=== PATIENT | female | born 1950 | race Caucasian/White ===

== ENCOUNTER 2016-11-17 00:53 | Inpatient (IN) ==
[2016-11-17 01:54] LABS: MANUAL DIFF NEEDED? NO
[2016-11-17 02:15] LABS: AGAP 15; ALBUMIN 4.3 g/dL (3.5-5.0); ALKALINE PHOSPHATASE 146 U/L (32-104); AMYLASE 46 U/L (20-200); BUN 15 mg/dL (8-22); CALCIUM 9.7 mg/dL (8.8-10.2); CHLORIDE 100 mmol/L (98-107); COSMO 288; GOT 57 U/L (10-30); GPT 32 U/L (10-36); LIPASE 29 U/L (13-60); SODIUM 143 mmol/L (136-145); TCO2 28 mmol/L (25-35); TOTAL BILIRUBIN 0.56 mg/dL (0.20-1.00); TOTAL PROTEIN 7.8 g/dL (6.3-8.3)
[2016-11-17 02:17] LABS: URINE CULTURE NEEDED? NO; URINE MICRO REVIEW NEEDED? NO; URINE SOURCE CATH
[2016-11-17 02:20] LABS: BILIRUBIN URINE NEGATIVE (NEGATIVE); BLOOD URINE NEGATIVE (NEGATIVE); COLOR YELLOW; GLUCOSE URINE NEGATIVE (NEGATIVE); LEUKOCYTES URINE NEGATIVE (NEGATIVE); NITRITE URINE NEGATIVE (NEGATIVE); PH URINE 7.5; PROTEIN URINE TRACE mg/dL (NEGATIVE); SP GRAVITY URINE 1.017; TURBIDITY URINE HAZY (CLEAR); UROBILINOGEN URINE 2 mg/dL (NORMAL)
[2016-11-17 02:20] LABS: BASO% 0.1 % (0.0-0.8); EOS# 0.02 X1000 (0.0-0.7); EOS% 0.1 % (0.0-10.0); HEMATOCRIT 37.8 % (37.0-47.0); HEMOGLOBIN 12.6 g/dL (12.0-16.0); IMM GRAN# 0.02 X1000 (0.0-0.04); IMM GRAN% 0.1 % (0.0-0.5); LYMPH# 1.64 X1000 (1.2-3.4); LYMPH% 11.5 % (20.5-51.1); MCH 30.3 PG (27-31); MCHC 33.3 g/dL (33-37); MCV 90.9 FL (81-99); MONO# 0.74 X1000 (0.11-0.59); MONO% 5.2 % (1.7-9.3); MPV 10.7 FL (7.4-10.4); PLT 246 X1000 (130-400); RBC 4.16 XMIL (4.2-5.4)
[2016-11-17 02:21] LABS: UR EPITHELIAL CELLS <10 /HPF (<10); URINE BACTERIA NEGATIVE /HPF; URINE RBC <10 /HPF (<10); URINE WBC <10 /HPF (<10)
--- NOTE | 2016-11-17 06:29 | PROVIDER DOCUMENTATION ---
This chart was entered by Curt Read Scribe, acting as scribe for Reece Ashby MD. HPI-Abdominal Pain/GI Problem - General Chief Complaint: Abdominal Pain Stated Complaint: abd pain Time Seen by Provider: 11/17/16 05:20 Source: patient, family Allergies/Adverse Reactions: Patient Allergies Allergy/AdvReac Type Severity Reaction Status Date / Time Sulfa (Sulfonamide Allergy Severe HIVES Verified 11/17/16 02:42 Antibiotics) Home Medications: Home Medication List Medication Instructions Recorded Confirmed Last Taken Type NK [No Home Medications] 11/17/16 11/17/16 Unknown History - History of Present Illness-ABD Nature of Presenting Problems: Pt is a 66 yowf who presents to ER with CC of midepigastric pain that is worse when pt urinates. Pt reports onset was 0130 this am and is non-radiating and burning sensation. Daughter states that over the past year, pt has lost 40 pounds, has been diagnosed with early onset dementia (with family hx where both parents in early 60's from early onset dementia). Daughter also reports that pt has had a decrease in appetite. Daughter reports that pt was seen in the last 6-7 months for same sxs and was told it was acid reflux, but never followed up with GI. Pt states that when her pain is present, she has mild relief with antacids. Abdominal Pain Onset Location: reports: epigastric Pain Radiation: reports: no radiation Quality of Pain: reports: burning Severity in ED: reports: mild Onset/Duration: reports: 4-6 hours ago Timing: reports: intermittent Associated Symptoms: reports: heartburn, loss of appetite. denies: anxiety, arm pain, back/neck pain, chest pain, constipation, diarrhea, fever/chills, headaches, joint pain, muscle aches, nausea, shortness of breath, syncope, vomiting, weakness, trouble walking Last BM: this morning Dark Stools Present?: reports: none noticed Rectal Bleeding: reports: none Rectal Pain: reports: none Emesis Description: reports: none Review of Systems - Adult - REVIEW OF SYSTEMS - ADULT Constitutional: reports: weight loss (40 pounds in past year). denies: chills, fever, fatique, night sweats, weight gain Eyes: reports: no symptoms reported Ears, Nose, Mouth & Throat: reports: no symptoms reported Cardiovascular: reports: no symptoms reported Respiratory: reports: no symptoms reported Gastrointestinal: reports: abdominal pain, frequent heartburn, poor appetite. denies: hematemesis, constipation, diarrhea, difficulty swallowing, nausea, rectal bleeding, vomiting Genitourinary: reports: no symptoms reported Musculoskeletal: reports: no symptoms reported Integumentary: reports: no symptoms reported Neurological: reports: no symptoms reported Psychiatric: reports: no symptoms reported Endocrine: reports: no symptoms reported Hematologic/Lymphatic: reports: no symptoms reported Allergic/Immunologic: reports: no symptoms reported All Other Systems: Reviewed and Negative Past History - Adult - PAST MEDICAL HISTORY-ADULT Review of Records: reports: Nursing Assessment Review, Medications Reviewed Neurological: reports: dementia - IMMUNIZATION STATUS Childhood Immunizations: See Nurse Assessment Flu Vaccine: See Nurse Assessment Physical Exam-General - PHYSICAL EXAM-ADULT Initial Vital Signs Reviewed: Yes - CONSTITUTIONAL General Appearance: appears well, alert, no apparent distress, thin - EYES Eyes: PERRL/EOMI, pink conjunctivae - NECK Neck: non-tender, full range of motion, supple, normal inspection. negative: limited range of motion, lymphadenopathy - RESPIRATORY Respiratory: chest non-tender, lungs clear, normal breath sounds, no pleuratic chest pain, no respiratory distress, no accessory muscle use. negative: respiratory distress, decreased breath sounds, accessory muscle use, wheezing - CARDIOVASCULAR Cardiovascular: normal peripheral pulses, regular rate, rhythm. negative: bradycardia, tachycardia, irregularly irregular - GASTROINTESTINAL (ABDOMEN) Abdominal Exam: normal bowel sounds, non tender, soft, no organomegaly, no pulsatile mass. negative: guarding, rebound, tenderness - MUSCULOSKELETAL Extremity: normal range of motion, non-tender, normal gait, normal inspection, no pedal edema, no calf tenderness, normal capillary refill, pelvis stable. negative: deformity, erythema, inflammation, swelling, tenderness - SKIN Integumentary: normal color, normal turgor, warm/dry. negative: abrasion(s), diaphoresis, ecchymosis, erythema, laceration(s), swelling, tenderness, warm - PSYCHIATRIC Psych/Mental Status: normal mood/affect, normal thought content, normal thought process, oriented x 3 Progress - PLAN OF CARE/RESULTS Progress/Plan/Lab Results: Vital Signs - 8 hr 11/17/16 01:08 11/17/16 02:41 11/17/16 04:57 Temperature 97.9 F Pulse Rate 60 68 66 Respiratory Rate 18 Blood Pressure 128/59 141/63 151/69 O2 Sat by Pulse Oximetry 100 99 97 Laboratory Results - last 24 hr 11/17/16 11/17/16 11/17/16 01:02 01:02 02:00 WBC 14.24 H RBC 4.16 L Hgb 12.6 Hct 37.8 MCV 90.9 MCH 30.3 MCHC 33.3 RDW Std Deviation 13.7 Plt Count 246 MPV 10.7 H Immature Gran % (Auto) 0.1 Neut % (Auto) 83.0 H Lymph % (Auto) 11.5 L [place] % (Auto) 5.2 Eos % (Auto) 0.1 Baso % (Auto) 0.1 Immature Gran # (Auto) 0.02 Neut # (Auto) 11.80 H Lymph # (Auto) 1.64 [place] # (Auto) 0.74 H Eos # (Auto) 0.02 Baso # (Auto) 0.02 Sodium 143 Potassium 4.0 Chloride 100 Carbon Dioxide 28 Anion Gap 15 BUN 15 Creatinine 0.6 Estimated GFR/1.73 m2 > 60 BUN/Creatinine Ratio 25 Glucose 136 H Calculated Osmolality 288 Calcium 9.7 Total Bilirubin 0.56 AST 57 H ALT 32 Alkaline Phosphatase 146 H Total Protein 7.8 Albumin 4.3 Globulin 3.5 Albumin/Globulin Ratio 1.2 Amylase 46 Lipase 29 Urine Source CATH Urine Color YELLOW Urine Turbidity HAZY Urine pH 7.5 Ur Specific Dickson 1.017 Urine Protein TRACE A Ur Glucose (Stick) NEGATIVE Ur Ketones (Stick) NEGATIVE Urine Blood NEGATIVE Urine Nitrite NEGATIVE Urine Bilirubin NEGATIVE Urobilinogen Dipstick 2 A Urine Leukocytes NEGATIVE Urine WBC (Auto) <10 Urine RBC (Auto) <10 U Epithel Cells (Auto) <10 Urine Bacteria (Auto) NEGATIVE Orders Category Date Time Status Saline Loc DIRECTED Care 11/17/16 01:14 Active NPO Diet 11/17/16 01:14 Active AMYLASE [CHEM] Stat Lab 11/17/16 01:02 Completed CBC WITH ELECTRONIC DIFF [HEME] Stat Lab 11/17/16 01:02 Completed COMPREHENSIVE METABOLIC PANEL [CHEM] Stat Lab 11/17/16 01:02 Completed LIPASE [CHEM] Stat Lab 11/17/16 01:02 Completed URINALYSIS W/POSS RFLX CULT-1 [URINALYSIS] Stat Lab 11/17/16 02:00 Completed Result Diagrams: 11/17/16 01:02 11/17/16 01:02 - CONSULTS/PCP/HOSPITALIST Notification #1 *Consult/PCP/Hospitalist*: Dr Montilla Time Discussed: 07:38 Consult Disposition: Admit - CHANGE OF SHIFT REPORT (ED Provider) Report Given and Care Transferred to:: Dr Elizabeth Time of Transfer: 06:12 Items Pending: CT/MRI Results (She appears to have PUD or maybe GERD but has lost 40 pounds over the past few months. We are awaiting T/A/P CT results but ultimately will need EGD as out pt. Early onset dementia is also a problem.) Departure - Departure Date of Disposition Decision: 11/17/16 Time of Disposition Decision: 07:39 DIAGNOSIS: Common bile duct (CBD) stricture Disposition: ADMITTED INPATIENT 09 Certified Medical Emergency: Emergent Condition: Fair Referrals and Follow-Ups: None,PCP [Primary Care Provider] - Tam Odell III, MD [ACTIVE STAFF PHYSICIAN] - Jordan Torres MD [ACTIVE STAFF PHYSICIAN] - - Critical Care Note This patient required my direct & personal management of CC.: No Attestation - Physician/ TIA Attestation Patient care was provided by Advanced Practice Provider:: No The physician spent face to face time with patient:: Yes Advanced Practice Provider documentation review:: Supervising physician onsite and consulted in the evaluation and care of this patient. The physician did have a face to face encounter with the patient. This chart was documented by the indicated scribe, (Curt Read Scribe) and accurately reflects the services I performed and decisions made by me, Reece Ashby MD, as attested by the provider's signature.
[2016-11-17] MEDS ORDERED: PRILOSEC PO SCH (11:45)
[2016-11-17] MEDS ORDERED: ZOFRAN IV PRN (11:45)
[2016-11-17] MEDS: NS 1,000 ML IV SCH (12:05)
[2016-11-17] MEDS: TYLENOL PO PRN (12:05)
--- NOTE | 2016-11-17 12:38 | Diag Imaging Result Doc PS360 ---
EXAM: CT THORAX/ABDOMEN/PELVIS INDICATION: malig work up TECHNIQUE: Standard images through the chest abdomen and pelvis were obtained after administration of IV contrast. COMPARISON: None. FINDINGS: CHEST: There is patchy bronchiectasis bilaterally with mild mucous plugging, most prominent anteriorly. There are mild patchy and vaguely nodular tree-in-bud opacities scattered throughout both lungs. This probably represents an atypical infectious process. Consider JOANNE infection. There is scarring at the lung apices, more prominent on the right where it extends inferiorly to the major fissure. The heart is not enlarged. There is no significant mediastinal or hilar lymphadenopathy appreciated. There are no pleural fluid collections and no pneumothorax. ABDOMEN/PELVIS: There are a couple tiny calcified stones layering in the gallbladder lumen. The gallbladder is distended and there is intrahepatic and extrahepatic biliary dilatation. No calcified stone is identified in the common bile duct. An occult radiolucent stone in the common bile duct or other obstructing lesion should be considered. There is no well-defined pancreatic mass. The pancreas is grossly unremarkable, otherwise. Aside from the biliary dilatation, the liver is unremarkable. The spleen and adrenal glands appear normal. There appears to be focal cortical scarring at the upper pole of the right kidney versus persistent lobulation. There is no hydronephrosis. The urinary bladder is unremarkable. The reproductive tract is grossly unremarkable as imaged. There is no evidence of appendicitis. The GI tract is grossly unremarkable. No focal inflammatory changes, free abdominal gas, or free fluid is appreciated. IMPRESSION: 1.Patchy bronchiectasis and mild tree-in-bud opacities throughout the lungs as described. Consider an atypical infectious process such as JOANNE. 2.Cholelithiasis. 3.Distended gallbladder and dilated intrahepatic and extrahepatic bile ducts. No radiopaque stone or ampullary mass can be identified on this study. Consider an occult obstructing radiolucent stone. Ultrasound and ERCP would probably be helpful. 4.Other incidental/nonacute findings detailed above. Electronically signed by Romaine Brice 11/17/2016 12:35 PM
--- NOTE | 2016-11-17 12:51 | Diag Imaging Result Doc PS360 ---
EXAM: US ABDOMEN-COMPLETE INDICATION: abd pain; cbd dilatation COMPARISON: None. FINDINGS: There are multiple small shadowing stones in the gallbladder lumen. The gallbladder is distended. There is no evidence of significant gallbladder wall thickening or pericholecystic fluid. The common bile duct is dilated measuring up to 1 cm in diameter. No intraductal stones can be identified sonographically. Sonographic Hurtado's sign was reported to be positive. The liver is grossly unremarkable. Portal venous flow is hepatopedal. The visualized pancreas is unremarkable. The aorta and IVC are grossly unremarkable. The spleen is unremarkable. There are a couple tiny simple appearing renal cysts bilaterally measuring up to 1.3 cm in the greatest dimensions. The kidneys are grossly unremarkable, otherwise. IMPRESSION: 1.Cholelithiasis. 2.Distended bile ducts and gallbladder but no ductal stone can be identified sonographically. 3.Reported positive sonographic Hurtado sign. Electronically signed by Romaine Brice 11/17/2016 12:49 PM
[2016-11-17] MEDS: ZOSYN 3.375 GM in NS 50 ML IV SCH ×2 (15:44→20:47)
--- NOTE | 2016-11-17 16:16 | HISTORY AND PHYSICAL ---
PRIMARY CARE PROVIDER: I am unable to obtain as patient is confused and there are no previous records. CHIEF COMPLAINT: Daughter brought her in for abdominal pain and a 40-pound weight loss with decreased appetite. HISTORY OF PRESENT ILLNESS: Ms. Silvia Goldsmith is a 66-year-old female with early onset dementia who also has a history of GERD, but when questioning her, she is definitely confused or has dementia. She told me that she did not have any pain in her stomach, but palpating, she did have some epigastric to right upper quadrant tenderness. The chest, abdominal and pelvic CT according to the ER physician showed a day common bile duct stricture of 9 mm. She also has an abdominal ultrasound that is pending. She does have elevated white count of 14, but afebrile. She has some a mild elevation of her AST and her alkaline phosphatase. Urinalysis is negative. Still awaiting chest CT results. I will admit, consult GI for possible ERCP. Of note, the daughter was not at the bedside when speaking to the patient, but according to ER records that she has had a 40 pound weight loss over the last year with a decreased appetite and that she has been having some reflux with some mild relief after antacids. PAST MEDICAL HISTORY: Early onset dementia and GERD. SURGICAL HISTORY: She has had some sort of abdominal surgery, but is unable to tell me what kind. There is an old midline abdominal incision. SOCIAL HISTORY: She states that she quit smoking, but used to smoke about a 4th pack per day. It is unknown when she quit. She says 7-8 years ago, but she is a poor historian. She denied alcohol and states that she lives with her daughter. FAMILY HISTORY: According to the daughter, the patient's mother and father both had early onset dementia and in their 60's. REVIEW OF SYSTEMS: Difficult to obtain. ALLERGIES: Sulfa. HOME MEDICATIONS: There are no home medications listed. PHYSICAL EXAMINATION: VITAL SIGNS: Temperature is 97.8 degrees, heart rate 74, respiratory rate 20, blood pressure 139/65, O2 saturation 97% on room air. She is 5 feet 4 inches tall, 132 pounds. BMI 22.8. GENERAL: Ms. Silvia Goldsmith is a 66-year-old, female, but most definitely has some sort of dementia. She is a pleasant, but confused. HEENT: Atraumatic, normocephalic. Pupils equal, round, reactive to light. Extraocular movements intact. Mucous membranes are moist. NECK: No JVD or carotid bruits noted. CARDIOVASCULAR: S1, S2. Regular rate and rhythm. No rubs, gallops, murmurs. PULMONARY: Clear to auscultation. Bilateral breath sounds. No accessory muscle use or work of breathing noted. GI: Soft, tender in the epigastric to right upper quadrant upon palpation. Positive bowel sounds x4. States she last had a bowel movement yesterday. EXTREMITIES: No edema noted. +2 dorsalis and radial pulses. NEUROLOGIC: Oriented to name only. Pleasantly confused and follows commands. SKIN: Warm, dry, intact. LABORATORY DATA: White blood cells 14,000, hemoglobin 12, hematocrit 37, platelet count 246,000. Sodium 143, potassium 4, BUN 15, creatinine 0.6, glucose 136, calcium 9.7, bilirubin 0.56, AST 57. ALT 37. Alkaline phos 146. Albumin 4.3. Urinalysis, trace protein, urobilin 2. IMAGING: Chest, abdomen, pelvic CT is not fully resulted, but according to the ER physician, it was reported that she had a common bile duct stricture at 9 mm, abdominal ultrasound has also not been read. ASSESSMENT AND PLAN: 1. Abdominal pain with 40 pound weight loss, decreased appetite and a reported common bile duct stricture of 9 mm. We will consult Gastroenterology for possible ERCP and continue with the proton pump inhibitor. 2. Gastroesophageal reflux disease. We will continue proton pump inhibitor. 3. Early onset dementia. No orders for this. We will just monitor for now. 4. Leukocytosis. She is afebrile. We are waiting for chest CT results. Urinalysis is good. Blood cultures have been obtained. 5. Hyperglycemia, but no history of diabetes. 6. Deep venous thrombosis prophylaxis. SCDs. Dictated by VITALY Scott for Juan Diego Ward MD cc: VITALY Scott MD
[2016-11-17] MEDS: PROTONIX IV SCH (17:02)
[2016-11-17] MEDS: SODIUM CHLORIDE 0.9% INJ SCH (17:02)
[2016-11-17] MEDS ORDERED: XANAX PO ONE (17:15)
--- NOTE | 2016-11-17 18:43 | CONSULTATION ---
DATE OF CONSULTATION: 11/17/2016 REQUESTING PHYSICIAN: Dr. Torres. REASON FOR CONSULT: Possible biliary stricture with choledocholithiasis. HISTORY OF PRESENT ILLNESS: The patient is a 66-year-old female with some underlying early dementia, presenting with epigastric pain that she describes worse when she urinated. Upon further description with her, her pain essentially moved around all over the place. Initially saying it was epigastric, then left upper quadrant, and then right lower quadrant pain. Regardless, she told the emergency department epigastric. Described as burning. There was some concern that this might be peptic ulcer disease. She also has a reported weight loss and loss of appetite. Apparently at 1 point there was family at the bedside in the emergency department that give further history of this but there is none at the bedside now. Daughter did report a decrease in appetite and initially they were told that this epigastric pain was related to reflux but when I asked the patient this time if she has had similar episodes in the past, she denied them. Again, it might be difficult to get a full history given the patient's mental status and early onset dementia. PAST MEDICAL HISTORY: Early onset dementia. PAST SURGICAL HISTORY: Includes appendectomy. MEDICATIONS: None. ALLERGIES: Sulfa. FAMILY HISTORY: Reviewed with patient and positive for early dementia. SOCIAL HISTORY: Lives at home. REVIEW OF SYSTEMS: A full 10 point review of systems obtained, negative as specified in HPI. PHYSICAL EXAMINATION: Vital Signs: Patient is currently afebrile. Her vital signs remain stable. General: No acute distress. Alert, interactive, female, looks stated age. HEENT: Normocephalic, atraumatic. Pupils equal, round, react to light. Mucous membranes moist. Oropharynx benign. Neck: Supple. Trachea midline. Cardiovascular: Regular rate and rhythm. Lungs: Grossly clear. Abdomen: Soft, nondistended. Some tenderness to palpation in epigastric region. No peritoneal signs. Extremities: Moves all extremities. Neurologic: Grossly intact. Skin: No signs of jaundice. Vascular: All extremities perfused. LABORATORY: Reviewed. White blood cell count is elevated at 14. Hematocrit is normal. LFTs normal. Her alkaline phosphatase is slightly elevated at 146. Bilirubin is normal. CT scan independently reviewed and radiology report reviewed. She does have intrahepatic and extrahepatic biliary tree dilatation concerning for potential common bile duct obstruction. There is no stones obvious. This might be related to a stricture. Her pancreas looks normal to my read. ASSESSMENT AND PLAN: A 66-year-old female with early onset dementia now with possible choledocholithiasis versus biliary stricture. 1. Early onset dementia. At this time makes gathering of the history somewhat difficult. From the ER note it looks like Dr. Odell has been consulted. We will follow up with their recommendations. 2. Choledocholithiasis versus biliary stricture. At this time, patient does have a leukocytosis. We will start her on antibiotics. She is not significantly tender. Suggested she has cholangitis but again, I will start her on antibiotics just to cover her just in case. I will plan on surgical intervention with laparoscopic cholecystectomy with cholangiogram to delineate if there actually is a stricture. Dr. Torres has been consulted and the patient may need an ERCP with stent if there is something noted on cholangiogram. This was discussed with the patient. She wants to decide upon it, but we will make her NPO after midnight and plan for surgical intervention if she agrees for tomorrow afternoon. cc: Ceasar Srivastava MD
--- NOTE | 2016-11-17 20:01 | CONSULTATION ---
DATE OF CONSULTATION: 11/17/2016 REASON FOR CONSULTATION: Abdominal pain and elevated liver enzymes and gallstones. HISTORY OF PRESENT ILLNESS: This is a 66-year-old female who has a history of questionable early onset dementia and GERD, who was admitted to the hospital for abdominal pain and 40 pounds weight loss with decreased appetite. She was noted to have elevated liver enzymes. She had a CT scan done which showed evidence of gallstones. Ultrasound also confirmed those findings. The patient has been complaining of low appetite for a few months. She lives with her daughter. She has lost 40 pounds in the last 1 year. She has a history on and off reflux and she takes [id number] antacids for relief. She denies any history of vomiting or passing blood in the stools. PAST MEDICAL HISTORY: Early onset dementia, GERD. PAST SURGERY HISTORY: She had some kind abdominal surgery, was unable to describe. SOCIAL HISTORY: She quit smoking 7-8 years ago. Prior to that, she used to smoke 1/4 pack per day. She is a poor historian. She denies history of alcohol or illicit drug abuse. She lives with her daughter. FAMILY HISTORY: Early onset dementia in the family, in patient's parents. REVIEW OF SYSTEMS: Denied any fevers or chills. Denies any nausea vomiting or vomiting blood or passing blood in the stools. She denies any constipation. She does have some reflux. She denies any major neurological problems or weakness of any body part. She does have some arthritis. ALLERGIES: Sulfa. MEDICATIONS: No home medicines listed in the computer. Medications in the hospital include Tylenol 650 mg p.o. q.6 hours as needed, IV normal saline 75 mL/h, Prilosec 40 mg p.o. b.i.d., Zofran 4 mg IV q.4 hours as needed, Zosyn 3.375 IV q.6 hours. She is currently NPO. PHYSICAL EXAMINATION: Vital signs: Temperature 97.7 degrees, pulse rate 70, respiratory rate 19, blood pressure 124/53, saturating 100% room air. Body weight of 132 pounds 11 ounces. BMI of 22.8 kg/m2. General appearance: Thinly built, lying in bed, in no acute distress. HEENT: No pallor. No icterus. Pupils equal, reactive to light. Neck: Supple. Chest: Decreased breath sounds at the bases. Cardiovascular: Regular rhythm. No murmur. Abdomen: Mild discomfort in the epigastrium and right upper quadrant. Bowel sounds are present. No guarding. No rebound. Extremities: No cyanosis, clubbing, edema. Neurologic: She is awake and alert. Answers simple questions. LABS: Her hemoglobin and hematocrit are 12.6 and 37.8, white count of 14.24, platelet count of 246,000, MCV of 90.9. Sodium 142, potassium 4.1, chloride 100, bicarb 20, anion gap 13, BUN 15, creatinine 0.6, glucose 136, calcium 9.7, total bilirubin is 0.56, AST 50, ALT 32, alkaline phosphatase 146, total protein 7.8, albumin of 4.3, amylase of 46, lipase of 29. Urinalysis showing trace protein and urobilinogen positive. IMAGING: Chest, abdomen, and pelvis CT on 11/17/2016 showed: 1. Patchy bronchiectasis and mild tree-in-bud opacities throughout the lungs. Consider an atypical infectious process such as JOANNE. 2. Cholelithiasis. 3. Distended gallbladder and dilated intrahepatic and extrahepatic bile duct. No radiopaque stone or ampullary masses can be identified on the study. 4. Scarring in the lung apices. 5. There is no well-defined pancreatic mass. Liver is unremarkable. 6. The spleen and adrenal glands appear normal. 7. No hydronephrosis. Ultrasound of the abdomen done today showed cholelithiasis, distended bile duct and gallbladder but no ductal stone can be identified; Reported positive sonographic Hurtado sign. IMPRESSION AND PLAN: 1. Cholelithiasis with prominent bile duct and elevated white count suggesting acute or chronic cholecystitis. We will consult Dr. Srivastava from general surgery. The patient is currently NPO. We will give her on IV fluids and IV antiemetics. We will start her on IV PPIs. She is already on IV antibiotics. 2. Atypical findings in the lungs, suspecting mycobacterium avium- intracellulare infection. This will be worked up by the primary team. 3. Reflux disease. Will start PPIs. 4. Early onset dementia, unclear etiology. Being managed by the primary care team. 5. Patient will undergo Cholecystectomy tomorrow with Dr. Srivastava and If there is any evidence of any common bilirubin duct stricture or retained stone then she may potentially need ERCP. The above plan was discussed with the patient, Dr. Srivastava and all questions answered. cc: MD Juan Diego Venegas MD Matthew L. Figh, MD MTDD
[2016-11-18] MEDS: ZOSYN 3.375 GM in NS 50 ML IV SCH ×4 (02:16→22:26)
[2016-11-18] MEDS: NS 1,000 ML IV SCH ×2 (04:18→14:31)
[2016-11-18] MEDS: TYLENOL PO PRN (04:41)
--- NOTE | 2016-11-18 06:28 | EKG Report ---
Test Performed on : 11/18/2016 05:16:07 AM Test Reason : chest pain Blood Pressure : / mmHG Vent. Rate : 061 BPM Atrial Rate : 061 BPM P-R Int : 126 ms QRS Dur : 074 ms QT Int : 428 ms P-R-T Axes : 075 028 036 degrees QTc Int : 430 ms Normal sinus rhythm. Normal ECG When compared with ECG of 31-AUG-2015 20:17, Vent. rate has decreased BY 44 BPM Non-specific change in ST segment in Inferior leads Nonspecific ST and T wave abnormality V1 Confirmed by Nigel Ewing DO ([id number]) on 11/21/2016 5:01:10 PM
--- NOTE | 2016-11-18 06:51 | PROGRESS NOTE ---
DATE: 11/18/2016 SUBJECTIVE: The patient is doing about the same. Resting comfortably. No major issues. OBJECTIVE: Vital Signs: The patient is currently afebrile. Her vital signs are stable. General: No acute distress. An alert, interactive female who looks her stated age. HEENT: Normocephalic, atraumatic. Pupils equal, round, react to light. Mucous membranes moist. Oropharynx benign. Neck: Supple. Trachea midline. Cardiovascular: Regular rate and rhythm. Lungs: Grossly clear. Abdomen: Soft. Nondistended. Some mild tenderness, although improved from previous. Extremities: Moves all extremities. Neurologic: Grossly intact. Skin: No signs of jaundice. Vascular: All extremities perfused. LABORATORY DATA: Reviewed from yesterday. No new labs this morning. ASSESSMENT AND PLAN: A 66-year-old, female with likely common bile duct stricture. 1. Common bile duct stricture. At this time, we will plan for surgical intervention with laparoscopic cholecystectomy with cholangiogram today. We will obtain consent. 2. Early-onset dementia. At this time, being managed by the primary care team. cc: Ceasar Srivastava MD
[2016-11-18 06:55] LABS: MANUAL DIFF NEEDED? NO
[2016-11-18 06:57] LABS: BASO% 0.4 % (0.0-0.8); EOS# 0.08 X1000 (0.0-0.7); EOS% 0.9 % (0.0-10.0); HEMATOCRIT 34.3 % (37.0-47.0); HEMOGLOBIN 11.1 g/dL (12.0-16.0); LYMPH# 1.62 X1000 (1.2-3.4); LYMPH% 18.9 % (20.5-51.1); MCH 29.7 PG (27-31); MCHC 32.4 g/dL (33-37); MCV 91.7 FL (81-99); MONO# 0.61 X1000 (0.11-0.59); MONO% 7.1 % (1.7-9.3); MPV 10.1 FL (7.4-10.4); NEUT% 72.7 % (42.2-75.2); PLT 204 X1000 (130-400); RBC 3.74 XMIL (4.2-5.4)
[2016-11-18 07:10] LABS: INR 1.08; PROTIME 11.4 Seconds (9.2-11.7); PTT 26.2 Seconds (22.0-36.0)
[2016-11-18 07:24] LABS: AGAP 12; ALBUMIN 3.9 g/dL (3.5-5.0); ALKALINE PHOSPHATASE 150 U/L (32-104); BUN 14 mg/dL (8-22); CALCIUM 8.6 mg/dL (8.8-10.2); CHLORIDE 106 mmol/L (98-107); COSMO 282; GOT 126 U/L (10-30); GPT 188 U/L (10-36); MAGNESIUM 2.3 mg/dL (1.5-2.7); POTASSIUM 3.6 mmol/L (3.5-5.1); SODIUM 142 mmol/L (136-145); TCO2 24 mmol/L (25-35); TOTAL BILIRUBIN 0.81 mg/dL (0.20-1.00); TOTAL PROTEIN 6.6 g/dL (6.3-8.3)
[2016-11-18] MEDS ORDERED: DIPRIVAN 1% ONE (10:29)
[2016-11-18] MEDS ORDERED: QUELICIN (DOSE) ONE (10:29)
[2016-11-18] MEDS ORDERED: XYLOCAINE-MPF 2% ONE (10:29)
[2016-11-18] MEDS ORDERED: XYLOCAINE 1% ONE (10:31)
[2016-11-18] MEDS ORDERED: SODIUM CHLORIDE 0.9% ONE (10:32)
[2016-11-18] MEDS ORDERED: SENSORCAINE-MPF 0.5%/EPI 1:200,000 ONE (10:32)
[2016-11-18] MEDS ORDERED: LR 1,000 ML ONE (10:32)
[2016-11-18] MEDS ORDERED: ZOFRAN ONE (10:44)
[2016-11-18] MEDS ORDERED: DECADRON ONE (10:44)
[2016-11-18] MEDS ORDERED: TORADOL ONE (10:44)
[2016-11-18] MEDS ORDERED: ZEMURON ONE (10:44)
[2016-11-18] MEDS ORDERED: FENTANYL ONE (10:57)
[2016-11-18] MEDS ORDERED: ROBINUL ONE (11:06)
[2016-11-18] MEDS ORDERED: NEOSTIGMINE ONE (11:06)
[2016-11-18 11:35] LABS: HEPATITIS PROFILE ACUTE SEE COMMENTS
--- NOTE | 2016-11-18 11:44 | Diag Imaging Result Doc PS360 ---
OPERATIVE CHOLANGIOGRAM - 11/18/2016 INDICATION: GALLBLADDER DX TECHNIQUE: The exam was performed by the patient's surgeon. Two images were submitted. COMPARISON: None FINDINGS: Contrast was infused into the cystic duct. This outlines normal intra and extrahepatic collecting ducts. There is good passage of contrast into the duodenum. IMPRESSION: Negative exam. Electronically signed by Jarad Fuller 11/18/2016 11:41 AM
--- NOTE | 2016-11-18 13:41 | PROGRESS NOTE ---
DATE: 11/18/2016 SUBJECTIVE: Patient is resting in bed. She is currently NPO. She is going for laparoscopic cholecystectomy today by Dr. Srivastava. She denies any new symptoms. She denies any fevers or chills. Denies any nausea, vomiting or passing blood in the stools. OBJECTIVE: Vital signs: Temperature 97.8 degrees, pulse rate 60, respiratory rate 18, blood pressure 100/45, saturating 98% on room air. Body weight of 132 pounds 11.2 ounces. General: Is thinly built, lying in bed, in no distress. HEENT: Mild pallor. No icterus. Neck: Supple. Abdomen: Soft, nontender, nondistended. Bowel sounds. Extremities: No cyanosis, clubbing. Neurologic: She is awake and was able to answer some simple questions. She has early onset dementia. LABS: Her hemoglobin and hematocrit 11.1, 34.3. White count of 8.5, platelet count of 204,000. MCV of 91.7. PT of 11.4, INR 1.08. PTT of 26.2. Sodium 142, potassium 3.6, chloride 106, bicarb 24, anion gap of 12, BUN of 14, creatinine 0.7, glucose of 72, calcium 8.6. Magnesium 2.3, total bilirubin is 0.81. AST 126, ALT 188. Alkaline phosphatase is 150. Total protein 6.0, albumin of 3.9. Amylase of 46, lipase of 29. IMPRESSION AND PLAN: 1. Cholelithiasis. She is going for a laparoscopic cholecystectomy today. 2. Question of choledocholithiasis, common bile duct stricture. Will await results of intraoperative cholangiogram after the laparoscopic cholecystectomy. 3. Reflux. Continue PPIs. 4. Atypical finding in the lungs per the radiologist report that needs to be addressed with primary care team. 5. Early onset dementia, being worked up by primary team. I discussed the plan of care with the patient and all questions were answered. cc: MD Ceasar Venegas MD Dr. Garcia
[2016-11-18] MEDS: NORCO-10 PO PRN (15:15)
--- NOTE | 2016-11-18 15:28 | OPERATIVE NOTE ---
PROCEDURE DATE: 11/18/2016 PREOPERATIVE DIAGNOSES: 1. Distended gallbladder. 2. Possible biliary stricture. POSTOPERATIVE DIAGNOSES: 1. Distended gallbladder. 2. Possible biliary stricture. PROCEDURE PERFORMED: Laparoscopic cholecystectomy with intraoperative cholangiogram. SURGEON: Ceasar Srivastava MD CASTING MACHINE ADJUSTER: None. ANESTHESIA: General endotracheal. INTRAOPERATIVE FINDINGS: On cholangiogram, there appeared to be a long distal segment of stricture versus normal physiologic sphincter. There was no obvious impediment to the contrast going into the duodenum or filling the left and right hepatic ducts. I did not see any filling defects. ESTIMATED BLOOD LOSS: 10 mL. SPECIMENS REMOVED: Gallbladder and its contents. HISTORY: The patient is a 66-year-old female, presenting with epigastric pain. She had a CT scan that showed a dilated common bile duct, concerning for biliary stricture. The risks, benefits, and alternatives for surgical intervention were discussed. All questions were answered. DESCRIPTION OF PROCEDURE: After informed consent was obtained, the patient was brought to the operating theatre and transferred to the operating theater and placed in supine position. General endotracheal anesthesia was then performed without complication. A formal time-out was then performed, confirming patient, date, and procedure. All were in agreement. At that time, attention was given to the abdomen. An infraumbilical incision was made, through which, using Optiview technique, we were able to insert an 11 mm trocar and connect it to insufflation. A pneumoperitoneum was achieved. Under direct visualization, we placed 3 more trocars, all 5 mm, 1 in the subxiphoid and 2 in the right upper quadrant. Using these, the gallbladder was identified and retracted cephalad. It was thin-walled. We were able to dissect out the cystic duct and cystic artery. We clipped once the cystic duct and performed ductotomy. We shot a cholangiogram. Please see the area above for the details of this. There was what appeared to be potential for stricture. I did contact Dr. Torres, who is going to evaluate the patient for potential ERCP in the morning. We then finished clipping the cystic duct and cystic artery and ligated these. We then dissected the gallbladder off the gallbladder fossa using electrocautery. We placed it into an endobag and brought it out through the infraumbilical incision. We then reexamined the clips and the gallbladder fossa. There was no bleeding and no drainage of bile. The clips were in good position. We then irrigated out the abdomen copiously until the suction fluid was clear. We closed the infraumbilical incisions with 0 Vicryl and a Chava-Marlena device. We removed all trocars, disconnected insufflation, and the pneumoperitoneum was released. All skin incisions were closed with 4-0 Monocryl. The patient tolerated the procedure well and was transferred to the recovery room in stable condition. Postoperatively, we will keep her on clear liquids and n.p.o. after midnight for GI to evaluate her. cc: Ceasar Srivastava MD
[2016-11-18] MEDS ORDERED: DILAUDID IV PRN (16:20)
[2016-11-18] MEDS: DILAUDID IV PRN (16:48)
[2016-11-18] MEDS: PROTONIX IV SCH (16:49)
[2016-11-18] MEDS: SODIUM CHLORIDE 0.9% INJ SCH (16:49)
--- NOTE | 2016-11-18 18:15 | PROGRESS NOTE ---
DATE: 11/18/2016 SUBJECTIVE: Patient reports moderate pain from the right upper quadrant from the recent surgery. Denied any other complaints. OBJECTIVE: Vital Signs: Temperature 98.3 degrees, heart rate 61, respiratory rate 19, blood pressure 117/50, O2 saturation 99% on room air. General Examination: This is a 66-year-old female lying in bed, in no acute distress. HEENT: Head is normocephalic, atraumatic. Anicteric sclerae and pale conjunctivae. Mucous membranes moist. Neck: Supple. No JVD noted. No carotid bruits. No lymphadenopathy. No thyromegaly. Cardiovascular: S1, S2 heard. No murmurs, gallops, or rubs. Regular rate and rhythm. Respiratory: Clear bilaterally to auscultation. No work of breathing or using accessory muscles. Abdomen is soft, a little bit tender to palpation in the epigastric area and also the right upper quadrant. There are no signs of peritoneal irritation. Bowel sounds present. No organomegaly. Extremities: No clubbing, cyanosis, or edema. Peripheral pulses present in both legs. Neurological: Patient alert and oriented x 3. Moves 4 extremities. LABORATORY DATA: White cell count 8.55, hemoglobin 11.1, hematocrit 34.3, platelets 204,000. The BMP is completely unremarkable. ASSESSMENT AND PLAN: 1. Cholelithiasis status post laparoscopic cholecystectomy. The patient came to the hospital with severe abdominal pain right upper quadrant and 40 pound weight loss unintentional. Dr. Srivastava and Dr. Torres have been consulted. Dr. Srivastava has performed laparoscopic cholecystectomy and they performed intraoperative cholangiogram, which basically showed a stricture. So, GI, Dr. Torres, has been consulted also, and he is planning to do an ERCP tomorrow morning. Will follow recommendations. 2. Gastroesophageal reflux disease. We will continue with PPI. 3. Leukocytosis is definitely much better after we started antibiotic. We will continue with the same management. Blood cultures still pending. 4. Hyperglycemia, but no history of diabetes, aware. cc: Juan Diego Ward MD
--- NOTE | 2016-11-18 18:18 | CONSULTATION ---
DATE OF CONSULTATION: 11/18/2016 CONCLUSION: The patient chest x-ray is found to have bilateral opacities. The radiologist felt in the differential diagnosis, mycobacterium avium complex was a possibility. The exact etiology of the opacities is uncertain to me. I think that the these could be due to tuberculosis or a nontuberculous mycobacterium, such as mycobacterium avium complex. Also, I think fungal infections are a possibility. Such as histoplasmosis or coccidioidomycosis. RECOMMENDATIONS: I have ordered a QuantiFERON tuberculin test. Also, I have ordered sputum for Acid-fast bacilli, smear and culture. I have tried to order a sputum for a fungal culture, although in the computer I had to use trachea as the source because they did not have a place where I could just order a sputum. I put in the comments that I wanted the culture for fungi to be from the patient's sputum. The specific orders for histoplasmosis for histoplasma antibodies and the histoplasma antigen for coccidioidomycosis, I ordered Coccidioides antibody screen. It may well be that the most of the studies I ordered either will be negative or will not be able to be obtained. Specifically, the sputum studies. It may glove turner and former that the only way to diagnose what the patient has will be some type of lung biopsy, whether it be transbronchial or percutaneous. Also, another possibility would be doing bronchoscopy with just bronchial washings and no biopsy, but I would favor getting lung biopsy also. DISCUSSION: The patient was unable provide a history. According to the chart, she has early- onset dementia. No family member was present with the patient either. She initially came in because of abdominal pain and a 40 pound weight loss. She was found to have a distended gallbladder and possible biliary stricture. She had a laparoscopic cholecystectomy performed and a cholangiogram which showed a possible stricture. Patient's CBC shows a white count of 8550, hemoglobin 11.3, and platelet count 204,000. Creatinine 0.7. Liver function studies are elevated. The amylase and lipase are normal. CT scan of the chest showed bilateral opacities of which mycobacterium avium complex was named as a possibility. PAST MEDICAL HISTORY: Positive for early-onset dementia and gastroesophageal reflux disease. Her surgical history is positive for some type of abdominal surgery, but the patient was unable to tell what the surgery was. She does have an old midline abdominal incision. SOCIAL HISTORY: The patient was a cigarette smoker. She told the nurse practitioner that she was quitting. The patient denied alcohol intake. She said that she lives with her daughter. FAMILY HISTORY: Positive for early-onset dementia. REVIEW OF SYSTEMS: Unable to be obtained. ALLERGIES: The patient chart says she is allergic to sulfa. MEDICATIONS: There were no home medications listed. PHYSICAL EXAMINATION: Vital Signs: Temperature is 98.5 degrees, pulse 79, respirations 19, blood pressure 102/51. General: This is a chronically ill and malnourished-appearing female. She is in no acute distress. Head, eyes, ears, nose, and throat: She can see near objects. She could hear my spoken words. There was no drainage from the nose or ears. Neck: No meningismus. Thorax: There was an increased AP diameter of the chest. Lungs: Clear to auscultation. Cardiovascular: Regular heart rate. Peripheral pulses are palpable. Abdomen: The patient's laparoscopy incisions had dressings on them. The dressings were intact. Neurologic: Patient is awake. She can move her extremities. There is no tremor. She was unable to provide medical history. She also was unable to provide a review of systems. Integument: No rashes were noted. Thank you for the consult. cc: Jorge Agudelo MD
[2016-11-19] MEDS: DILAUDID IV PRN ×3 (01:16→16:21)
[2016-11-19] MEDS: ZOSYN 3.375 GM in NS 50 ML IV SCH ×4 (03:50→23:33)
[2016-11-19] MEDS: NS 1,000 ML IV SCH ×3 (06:08→23:33)
--- NOTE | 2016-11-19 06:51 | PROGRESS NOTE ---
DATE: 11/19/2016 SUBJECTIVE: Patient doing okay. She was transferred to a negative pressure room given the concern of potential bilateral opacities seen on chest x-ray. Infectious disease has been consulted. Patient tolerated her laparoscopic cholecystectomy. We did perform a cholangiogram at that time. To my read it looks like there was a potential long segment stricture at the distal aspect of the common bile duct near the ampulla. GI has been notified of potential ERCP. She is on the schedule apparently. OBJECTIVE: Vital Signs: Patient is currently afebrile. Her vital signs are stable. General: No acute distress. Cardiovascular: Regular rate and rhythm. Lungs: Grossly clear. Abdomen: Soft, appropriately tender. ASSESSMENT/PLAN: A 66-year-old, female status post laparoscopic cholecystectomy for a common bile duct stricture. 1. Common bile duct stricture. At this time, cholangiogram. To my personal view, it looked like she had a long segment stricture. Given the fact that she did not have a significant stone burden by the way the gallbladder felt, I am concerned that this might be another etiology for her stricture. GI has been consulted for an ERCP and I suspect that would be the best route just to visualize to make sure there is not any other secondary causes for the stricture. Tentatively planned for today. 2. Early-onset admission. At this time, being managed by the primary care physician. 3. The potential for bilateral pulmonary opacities at this time, she is in a negative pressure room and infectious disease has been helpful, I will defer to them. cc: Ceasar Srivastava MD
[2016-11-19 11:52] LABS: MANUAL DIFF NEEDED? NO
[2016-11-19 11:55] LABS: BASO% 0.1 % (0.0-0.8); EOS# 0.01 X1000 (0.0-0.7); EOS% 0.1 % (0.0-10.0); HEMATOCRIT 30.6 % (37.0-47.0); HEMOGLOBIN 9.9 g/dL (12.0-16.0); IMM GRAN# 0.03 X1000 (0.0-0.04); IMM GRAN% 0.3 % (0.0-0.5); LYMPH# 1.57 X1000 (1.2-3.4); LYMPH% 13.6 % (20.5-51.1); MCH 29.7 PG (27-31); MCHC 32.4 g/dL (33-37); MCV 91.9 FL (81-99); MONO# 0.87 X1000 (0.11-0.59); MONO% 7.5 % (1.7-9.3); MPV 10.4 FL (7.4-10.4); NEUT% 78.4 % (42.2-75.2); PLT 190 X1000 (130-400); RBC 3.33 XMIL (4.2-5.4)
[2016-11-19 12:13] LABS: AGAP 9; ALBUMIN 3.7 g/dL (3.5-5.0); ALKALINE PHOSPHATASE 124 U/L (32-104); BUN 11 mg/dL (8-22); CALCIUM 8.2 mg/dL (8.8-10.2); CHLORIDE 105 mmol/L (98-107); COSMO 279; GOT 46 U/L (10-30); GPT 109 U/L (10-36); POTASSIUM 3.9 mmol/L (3.5-5.1); SODIUM 140 mmol/L (136-145); TCO2 26 mmol/L (25-35); TOTAL PROTEIN 6.2 g/dL (6.3-8.3)
--- NOTE | 2016-11-19 14:42 | PROGRESS NOTE ---
DATE: 11/19/2016 SUBJECTIVE: This patient is still complaining about abdominal pain, mostly at the level of the epigastric and right upper quadrant. She is not complaining of shortness of breath or chest pain. No other complaints. OBJECTIVE: Vital Signs: Temperature 98.3 degrees, pulse 73, respiratory rate 20, blood pressure 136/65, oxygen saturation 96 on room air. HEENT: Head normocephalic. No trauma. PERRLA. Neck: Supple. No JVD. No masses. Central trachea. Chest: Clear to auscultation. No wheezing. No rales. Abdomen: Soft. Tender to palpation at the level of the epigastric area and right upper quadrant. No signs of peritoneal irritation. Bowel sounds present. Extremities: No edema. No clubbing. No cyanosis. Neurological: The patient is alert and oriented x3. She moves all 4 extremities. She is following commands. LABORATORY DATA: WBC 11.5, hemoglobin 9.9, hematocrit 30.6, platelets 190,000. Sodium 140, potassium 3.9, chloride 105, bicarbonate 26, BUN 11, creatinine 0.6, glucose 101, calcium 8.2. AST 46, ALT 109, alkaline phosphatase 124, albumin 3.7. ASSESSMENT AND PLAN: 1. Cholelithiasis, status post laparoscopic cholecystectomy. She has been followed by Dr. Srivastava closely. No signs of peritoneal irritation and no sign of infection. They performed an intraoperative cholangiogram, which basically showed a stricture. Gastroenterology Department has been consulted, and probably they will do an endoscopic retrograde cholangiopancreatography today. 2. Gastroesophageal reflux disease. Continue with proton pump inhibitor. 3. Leukocytosis. Today, the WBC increased from 8.5 to 11.5. Infectious Disease Department is following this patient closely. 4. Possible atypical pneumonia. Infectious Disease Department has been consulted. They are ruling out mycobacterium and non-mycobacterium infections, as well as fungal infection. 5. Hyperglycemia. Blood sugar has been stable for the past 2 days. Will continue to monitor. No history of diabetes. cc: Travis Bertrand MD
[2016-11-19] MEDS ORDERED: DIPRIVAN 1% 500 MG/50 ML BOTTLE ONE (15:11)
[2016-11-19] MEDS ORDERED: XYLOCAINE-MPF 2% ONE (15:52)
--- NOTE | 2016-11-19 16:10 | Diag Imaging Result Doc PS360 ---
ERCP-BILIARY AND PANCREATIC - 11/19/2016 INDICATION: ? CBD Stricture on IOC TECHNIQUE: The exam was performed by the patient's endoscopist. Three images were submitted. COMPARISON: 11/18/2016 FINDINGS: There was mild dilation of the common bile duct. Apparently this was due to papillary spasm or stenosis. A common bile duct stent was placed in good position. IMPRESSION: No complication. Electronically signed by Jarad Fuller 11/19/2016 4:08 PM
[2016-11-19] MEDS: SODIUM CHLORIDE 0.9% INJ SCH (16:26)
[2016-11-19] MEDS: PROTONIX IV SCH (16:26)
--- NOTE | 2016-11-19 16:45 | OPERATIVE NOTE ---
PROCEDURE DATE: 11/19/2016 PREOPERATIVE DIAGNOSIS: Rule out papillary stricture or benign stricture of the common bile duct. POSTOPERATIVE DIAGNOSIS: Papillary spasm versus mild stenosis. DESCRIPTION OF PROCEDURE: After informed consent and adequate intravenous sedation, the scope introduced into the esophagus, stomach and duodenum. Ampulla appears normal. Pancreatogram normal. Cholangiogram reveals abrupt ending and some "hanging of the contrast." At this point, a sphincterotomy was performed. Basket sweep did not reveal any stones. A 10-Setswana 5 cm stent was deployed. The scope was withdrawn. The patient tolerated the procedure. Transported back to recovery in satisfactory condition. PROCEDURES: 1. Endoscopic retrograde cholangiopancreatography. 2. Endoscopic retrograde cholangiopancreatography with sphincterotomy. 3. Endoscopic retrograde cholangiopancreatography with basket sweep. 4. Endoscopic retrograde cholangiopancreatography with a stent placement. cc: Donald Salinas MD
[2016-11-19] MEDS: NORCO-10 PO PRN ×2 (19:30→23:33)
[2016-11-20] MEDS: ZOSYN 3.375 GM in NS 50 ML IV SCH ×4 (04:50→21:52)
[2016-11-20] MEDS: DILAUDID IV PRN ×2 (04:50→21:56)
[2016-11-20] MEDS: NS 1,000 ML IV SCH (06:58)
[2016-11-20 06:59] LABS: MANUAL DIFF NEEDED? NO
[2016-11-20 07:04] LABS: BASO% 0.3 % (0.0-0.8); EOS# 0.05 X1000 (0.0-0.7); EOS% 0.7 % (0.0-10.0); HEMATOCRIT 30.4 % (37.0-47.0); HEMOGLOBIN 9.9 g/dL (12.0-16.0); LYMPH# 1.71 X1000 (1.2-3.4); LYMPH% 23.1 % (20.5-51.1); MCH 29.9 PG (27-31); MCHC 32.6 g/dL (33-37); MCV 91.8 FL (81-99); MONO# 0.61 X1000 (0.11-0.59); MONO% 8.2 % (1.7-9.3); MPV 10.5 FL (7.4-10.4); NEUT% 67.7 % (42.2-75.2); PLT 184 X1000 (130-400); RBC 3.31 XMIL (4.2-5.4)
--- NOTE | 2016-11-20 07:05 | PROGRESS NOTE ---
DATE: 11/20/2016 SUBJECTIVE: The patient did undergo an ERCP and stent placement. She is otherwise doing okay. OBJECTIVE: Vital Signs: Patient is currently afebrile. Her vital signs are stable. General Examination: No acute distress. Cardiovascular: Regular rate and rhythm. Lungs: Grossly clear. Abdomen: Soft, appropriately tender. Incision is healing well. ASSESSMENT/PLAN: A 66-year-old, female status post laparoscopic cholecystectomy with common bile duct stricture, status post endoscopic retrograde cholangiopancreatography with stent. 1. Common bile duct stricture. At this time, the patient is doing okay. She had a stent placed. From a surgical point of view, she seems to be healing up well. I will be available if needed. 2. Early onset dementia. At this time, being managed by the hospitalist service. 3. Potential for bilateral pulmonary opacities. At this time, she is in a negative pressure room. I will defer to infectious disease and hospitalist on this but again, I will be available as needed. cc: Ceasar Srivastava MD
[2016-11-20 07:38] LABS: AGAP 8; ALBUMIN 3.7 g/dL (3.5-5.0); ALKALINE PHOSPHATASE 115 U/L (32-104); BUN 7 mg/dL (8-22); CALCIUM 7.9 mg/dL (8.8-10.2); CHLORIDE 105 mmol/L (98-107); COSMO 279; GOT 31 U/L (10-30); GPT 83 U/L (10-36); POTASSIUM 3.1 mmol/L (3.5-5.1); SODIUM 141 mmol/L (136-145); TCO2 28 mmol/L (25-35); TOTAL BILIRUBIN 0.41 mg/dL (0.20-1.00); TOTAL PROTEIN 6.1 g/dL (6.3-8.3)
[2016-11-20] MEDS ORDERED: KLOR-CON PO ONE (08:06)
[2016-11-20] MEDS: PERIDEX MT SCH ×2 (09:02→21:53)
[2016-11-20 11:49] LABS: COCCIDIOIDES AB SCREEN SERUM SEE COMMENTS
--- NOTE | 2016-11-20 15:47 | PROGRESS NOTE ---
DATE: 11/20/2016 PRESENT ILLNESS: The patient's chest x-ray has bilateral opacities that are suggestive of cultures such as mycobacterium avium complex, a fungal culture such as histoplasmosis and coccidioidomycosis are possibilities. The coccidioidomycosis, likely of having that in illness, is very small because the patient told me she has never been to the [facility] part of the [facility] or the [place] part of the [facility]. Certainly TB is always a possibility in this situation. MEDICATIONS: For right now we are not putting the patient on any medications now for pulmonary problem because first of all it does not seem to be an emergency. The patient is not having any trouble breathing at rest, and also there are so many different agents that it could be. PHYSICAL EXAMINATION: Vital Signs: Temperature is 99.7 degrees, pulse 100, respirations 18, blood pressure 109/59. General: This is a chronically ill-appearing middle-aged female who is in no acute distress. Lungs: Clear to auscultation. Cardiovascular: Regular heart rate. Abdomen: Soft, nontender. Vital Signs: Temperature is 98.1 degrees, pulse 74, respirations 20, blood pressure 136/75. LABORATORY DATA: The patient's CBC shows a white blood cell count of 7410, hemoglobin 9.9, and platelet count 184,000. Creatinine 0.6. GFR is greater than 60. The Coccidioides antibody screening test was positive. The confirmatory test is pending. ASSESSMENT AND PLAN: For now, I am waiting to find out all of the results of the cultures on the serologic test to see if we can determine what infection the patient has. If this is unsuccessful, then I think the patient would need some sort of invasive procedure such as bronchoscopy with transbronchial biopsy or possibly a percutaneous lung biopsy. COMORBIDITIES: The patient's comorbidities include cigarette smoking. cc: Jorge Agudelo MD
--- NOTE | 2016-11-20 16:44 | PROGRESS NOTE ---
DATE: 11/20/2016 SUBJECTIVE: Patient is resting in bed. She was seen by Dr. Agudelo for possible evaluation of the findings on the lung scan. The patient had an ERCP with stenting done yesterday by Dr. Salinas for papillary stenosis. The patient denies any current symptoms. The patient was able to eat a good meal today. She denies any fevers or chills. OBJECTIVE: Vital signs: Temperature 98.1, pulse rate 74, respiratory rate 20, blood pressure 136/75, saturating 97% on room air. General Appearance: Thinly built, lying in bed, in no acute distress. HEENT: Mild pallor. No icterus. Neck: Supple. Abdomen: Soft, nontender, nondistended. Extremities: No cyanosis, clubbing, or edema. Neurologic: She is awake and alert. Answers questions. LABS: Hemoglobin and hematocrit are 9.9 and 30.4, white count 7.41, platelet count of 184,000. Sodium 141, potassium 3.1, chloride 105, bicarb 29, anion gap 8, BUN of 7, creatinine 0.6, glucose of 103, calcium 7.9, total bilirubin is 0.41, AST 31, ALT 83, alkaline phosphatase 115, total protein 6, albumin of 3.7. SALVADOR is negative. Coccidioides antibody is reactive. Hepatitis nonreactive. IMPRESSION AND PLAN: 1. Common bile duct stricture status endoscopic retrograde cholangiopancreatography with stenting. Now the liver enzymes are trending down. We will continue follow. Patient needs to follow with Dr. Salinas in 4 weeks of discharge. At that time, we will schedule for ERCP with stent removal. 2. Early onset dementia. Being managed by the hospice team. 3. Bilateral pulmonary opacities. Positive Coccidia antibody. This is being managed by Dr. Agudelo. 4. We will sign off but be available for any questions. cc: MD Ceasar Venegas MD Leroy F. Harris, MD MTDD
--- NOTE | 2016-11-20 16:50 | PROGRESS NOTE ---
DATE: 11/20/2016 SUBJECTIVE: This patient is still complaining about abdominal pain mostly epigastric and right upper quadrant. She is status post laparoscopic cholecystectomy and ERCP with stent placement. OBJECTIVE: Vital Signs: Temperature 98.1 degrees, pulse 74, respiratory rate 20, blood pressure 136/75, oxygen saturation 97% on room air. HEENT: Head normocephalic. No trauma. PERRLA. Neck: Supple. No JVD. No masses. Central trachea. Chest: Clear to auscultation. No wheezing. No rales. Abdomen: Soft, tender to palpation at the level of the right upper quadrant and epigastric area. No signs of peritoneal irritation. Bowel sounds present. Extremities: No edema. No clubbing. No cyanosis. Neurological: The patient is alert and oriented x3. She moves all 4 extremities. She is following commands. LABORATORY: WBC 7.4, hemoglobin 9.9, hematocrit 30.4, platelets 184,000. Sodium 141, potassium 3.1, chloride 105, bicarbonate 28, BUN 7, creatinine 0.6, glucose 103, calcium 7.9. ASSESSMENT AND PLAN: 1. Cholelithiasis status post laparoscopic cholecystectomy. She has been followed by Dr. Srivastava closely. No signs of peritoneal irritation. No sign of infection. Gastroenterology Department also did an ERCP with a stent placement yesterday. 2. Gastroesophageal reflux disease. Continue with PPIs. 3. Possible atypical pneumonia. Infectious Disease Department has been following this patient. 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 We will follow their recommendations. 4. Leukocytosis, resolved. 5. Hyperglycemia, stable for the past 3 days. Blood sugar today is 103. 6. Hypokalemia. I will replace the potassium. cc: Travis Bertrand MD
[2016-11-20] MEDS: PROTONIX IV SCH (16:58)
[2016-11-21] MEDS: NS 1,000 ML IV SCH ×4 (02:41→22:31)
[2016-11-21] MEDS: NORCO-10 PO PRN ×2 (04:54→12:56)
[2016-11-21] MEDS: ZOSYN 3.375 GM in NS 50 ML IV SCH ×4 (04:54→22:30)
[2016-11-21 07:12] LABS: MANUAL DIFF NEEDED? NO
[2016-11-21 07:15] LABS: BASO% 0.4 % (0.0-0.8); EOS# 0.15 X1000 (0.0-0.7); EOS% 2.2 % (0.0-10.0); HEMATOCRIT 32.2 % (37.0-47.0); HEMOGLOBIN 10.6 g/dL (12.0-16.0); LYMPH# 2.11 X1000 (1.2-3.4); MCH 29.9 PG (27-31); MCHC 32.9 g/dL (33-37); MONO# 0.63 X1000 (0.11-0.59); MONO% 9.3 % (1.7-9.3); MPV 10.3 FL (7.4-10.4); NEUT% 57.1 % (42.2-75.2); PLT 198 X1000 (130-400); RBC 3.54 XMIL (4.2-5.4)
[2016-11-21 07:54] LABS: AGAP 11; ALBUMIN 3.7 g/dL (3.5-5.0); ALKALINE PHOSPHATASE 110 U/L (32-104); BUN 5 mg/dL (8-22); CALCIUM 8.7 mg/dL (8.8-10.2); CHLORIDE 107 mmol/L (98-107); COSMO 281; GOT 22 U/L (10-30); GPT 63 U/L (10-36); POTASSIUM 3.2 mmol/L (3.5-5.1); SODIUM 143 mmol/L (136-145); TCO2 25 mmol/L (25-35); TOTAL BILIRUBIN 0.55 mg/dL (0.20-1.00); TOTAL PROTEIN 6.4 g/dL (6.3-8.3)
[2016-11-21] MEDS: PERIDEX MT SCH (11:16)
[2016-11-21] MEDS ORDERED: KLOR-CON PO ONE (13:20)
--- NOTE | 2016-11-21 13:50 | PROGRESS NOTE ---
DATE: 11/21/2016 SUBJECTIVE: This patient is still complaining of abdominal pain, located in the epigastric and right upper quadrant. She is status post laparoscopic cholecystectomy and ERCP with stent placement. She denies nausea, vomiting, chest pain or shortness of breath. OBJECTIVE: Vital Signs: Temperature 98.4 degrees, pulse 68, respiratory rate 20, blood pressure 140/64, oxygen saturation 97% on room air. HEENT: Head normocephalic. No trauma. PERRLA. Neck: Supple. No JVD. No masses. Central trachea. Chest: Clear to auscultation. No wheezing. No rales. Abdomen: Soft, tender to palpation at the level of the right upper quadrant and epigastric area. No signs of peritoneal irritation. Bowel sounds present. Extremities: No edema. No clubbing. No cyanosis. Neurological: The patient is alert and oriented x3. She moves all 4 extremities. She is following commands. LABORATORY: WBC 6.8, hemoglobin 10.6, hematocrit 32.2, platelets 198,000. Sodium 143, potassium 3.2, chloride 107, bicarbonate 25, BUN 5, creatinine 0.6. Glucose 79. Calcium 8.7. AST 22, ALT 63, alkaline phosphatase 110. ASSESSMENT AND PLAN: 1. Cholelithiasis status post laparoscopic cholecystectomy. She has been followed by Surgery closely. No signs of peritoneal irritation. No signs of infection. Gastroenterology Department also did an ERCP with stent placement a couple days ago. 2. Papillary stricture, status post ERCP and stent placement, this ERCP was done on 11/19/2016. 3. Gastroesophageal reflux disease. Continue with PPIs. 4. Possible atypical pneumonia. Infectious Disease Department has been following this patient. We have a positive screening for coccidioides. We will follow the recommendations of Infectious Disease Department. 5. Leukocytosis, resolved. 6. Hyperglycemia, stable for the past 4 days. 7. Hypokalemia. I will replace the potassium today. cc: Travis Bertrand MD MTDD
[2016-11-21] MEDS: PROTONIX IV SCH (16:14)
--- NOTE | 2016-11-21 16:30 | PROGRESS NOTE ---
DATE: 11/21/2016 PRESENT ILLNESS: The patient is going to be discharged either today or tomorrow. She has cavitary lesions in her lungs. I have sent sputum's for AFB and fungal cultures. Also, I have ordered an interferon Gold TB test, histoplasma antigen and antibodies to Coccidioides. The Coccidioides antibody test is positive. A more specific test is still pending. I have requested to see the patient in my office in 3 weeks and see if we can establish the cause of her cavitary lesions. cc: Jorge Agudelo MD
[2016-11-22] MEDS ORDERED: HALDOL IM ONE (03:58)
[2016-11-22] MEDS: ZOSYN 3.375 GM in NS 50 ML IV SCH ×2 (04:16→10:00)
[2016-11-22] MEDS: NS 1,000 ML IV SCH (04:17)
[2016-11-22 06:09] LABS: MANUAL DIFF NEEDED? NO
[2016-11-22 06:14] LABS: BASO% 0.4 % (0.0-0.8); EOS# 0.21 X1000 (0.0-0.7); EOS% 2.6 % (0.0-10.0); HEMATOCRIT 33.5 % (37.0-47.0); LYMPH% 23.4 % (20.5-51.1); MCH 29.5 PG (27-31); MCHC 32.8 g/dL (33-37); MCV 89.8 FL (81-99); MONO# 0.61 X1000 (0.11-0.59); MONO% 7.5 % (1.7-9.3); MPV 10.1 FL (7.4-10.4); NEUT% 66.1 % (42.2-75.2); PLT 206 X1000 (130-400); RBC 3.73 XMIL (4.2-5.4)
[2016-11-22 06:27] LABS: AGAP 9; BUN 5 mg/dL (8-22); CALCIUM 8.6 mg/dL (8.8-10.2); CHLORIDE 108 mmol/L (98-107); COSMO 283; POTASSIUM 3.3 mmol/L (3.5-5.1); SODIUM 144 mmol/L (136-145); TCO2 27 mmol/L (25-35); TOTAL BILIRUBIN 0.49 mg/dL (0.20-1.00); TOTAL PROTEIN 6.6 g/dL (6.3-8.3)
[2016-11-22 06:28] LABS: ALBUMIN 3.9 g/dL (3.5-5.0); ALKALINE PHOSPHATASE 109 U/L (32-104); GOT 21 U/L (10-30); GPT 57 U/L (10-36)
[2016-11-22] MEDS ORDERED: KLOR-CON PO ONE (08:24)
[2016-11-22] MEDS: PERIDEX MT SCH (10:00)
[2016-11-22 15:14] VITALS: BP 136/77
[2016-11-22] MEDS ORDERED: AUGMENTIN PO SCH (21:00)
--- NOTE | 2016-11-23 09:52 | DISCHARGE SUMMARY ---
ADMISSION DATE: 11/17/2016 DISCHARGE DATE: 11/22/2016 CONSULTATIONS: 1. Dr. Ceasar Srivastava with General Surgery. 2. Dr. Torres with Gastroenterology. 3. Dr. Jorge Agudelo with Infectious Disease. PERTINENT PROCEDURES: 1. Chest, abdomen, and pelvis CT showed patchy bronchiectasis and mild disease seen throughout the lungs. Consider an atypical infectious process such as JOANNE, cholelithiasis, distended gallbladder, dilated intrahepatic and extrahepatic bile ducts. No radiopaque stone or inflammatory mass can be identified. Consider an occult obstructing radiolucent stone. Ultrasound and ERCP would probably be helpful. 2. Ultrasound showed cholelithiasis, distended bile duct and gallbladder, but no ductal stone could be identified sonographically. Reported positive sonographic Hurtado's sign. 3. Laparoscopic cholecystectomy with intraoperative cholangiogram, performed by Dr. Ceasar Srivastava. 4. ERCP with sphincterectomy, basket sleeve, and stent placement performed by Dr. Salinas. DISCHARGE DIAGNOSES: 1. Cholelithiasis, status post laparoscopic cholecystectomy performed by Dr. Srivastaav. GI also performed an ERCP with stent placement. 2. Papillary stricture, status post ERCP and stent placement. 3. Gastroesophageal reflux disease. Continue PPI. 4. Possible atypical pneumonia. Followed by Dr. Agudelo. The patient had a positive screening for coccidioides. Will follow up with Dr. Jorge Agudelo with Infectious Disease in 3 weeks for a more in-depth testing and follow up on testing done in house. 5. Leukocytosis, resolved. 6. Hyperglycemia, stable. 7. Hypokalemia, resolved. HOSPITAL COURSE: Ms. Goldsmith is a 66-year-old female with an early- onset of dementia, history of GERD. Reported to the ED with pain in her stomach. Upon palpation, she had pain in the epigastric to right upper quadrant tenderness. Chest, abdomen, and pelvis CT showed common bile duct stricture of 9 mm. An abdominal ultrasound was also performed. Showed an elevated white count of 14, mild elevation of her AST and alkaline phosphatase. Urinalysis was negative. She was admitted with a surgical and GI consult. She had a 40 pound weight loss over the past year, with a decreased appetite, and had been having some reflux, with some mild relief with antacids. Dr. Srivastava initiated antibiotics. On 11/18, she underwent a laparoscopic cholecystectomy with an intraoperative cholangiogram with Dr. Srivastava. She then underwent an ERCP with sphincterectomy, basket sleeve, and stent placement with Dr. Salinas, where they found papillary spasm versus mild stenosis. The patient was healing nicely from her laparoscopic cholecystectomy. Her liver enzymes were also trending down after her ERCP with stenting. She will follow up with Dr. Srivastava, as well as Dr. Salinas after discharge. As of note, on her imaging, when she first arrived, she did have bilateral pulmonary opacities, for which Dr. Jorge Agudelo was consulted. He ordered a multitude of tests. One of them came back positive for coccidia antibody. He has sent her sputum for AFB and fungal cultures, as well as ordered interferon gold TB test, histoplasma antigen and antibodies to coccidioides, because the test was positive. He has requested to see the patient in his office in 3 weeks so they can establish the cause of her cavitary lesion. She is appropriate for discharge back home today. VITAL SIGNS: Temperature is 98.2 degrees, heart rate 68, respirations 17, blood pressure is 139/77, O2 is 98% on room air. DISCHARGE DIET: GI soft. DISCHARGE MEDICATIONS: 1. Augmentin 875 mg p.o. q.12 hours. 2. [place] 10 one each q.6 hours p.r.n. FOLLOWUP: Ms. Goldsmith is being discharged home to follow up with Dr. Agudelo in 3 weeks. She will follow up with Dr. Salinas in 4 weeks for stent removal, as well as Dr. Ceasar Srivastava as he has instructed. She can return to the ED for any worsening of symptoms. I personally performed a face to face evaluation on this patient, also I review laboratory work and images, she has a suspicious lesion on her chest X- rays and CT, some cavitary lesions, likely this patient has atypical pneumonia, agree with the assessment and treatment, antibiotics and breathing treatment, she is ready for discharge, follow up with Travis Weinberg MD. Dictated by VITALY Osorio for Travis Bertrand MD cc: Travis Bertrand MD [facility]
[2016-11-24 16:34] LABS: COCCIDIOIDES AB CF/ID SERUM SEE COMMENTS; COCCIDIOIDES REFLEX CHARGE YES
== END 2016-11-22 16:18 | disposition home or self-care (01) ==
LOC: ED 00:53 → SUATTDRO 10:02 → 3N 10:02
PROVIDERS: ATTEND Internal Medicine
PROC: EN.ERCP (2016-11-19 15:15)